=== PATIENT | male | born 1995 | race American Indian/Alaskan Native ===

== ENCOUNTER 2019-02-28 18:05 | Emergency (ER) | payer OTHER ==
--- NOTE | 2019-02-28 19:02 | Event Note ---
ED Screening Note Date of service: 02/28/19 Time: 18:57 ED Screening Note: 23 y/o presents s/p syncopal episode today with lac to chin felt lightheaded feeling prior, Was on the phone and got some bas news prior to syncpal episode This initial assessment/diagnostic orders/clinical plan/treatment(s) is/are subject to change based on patients health status, clinical progression and re- assessment by fellow clinical providers in the ED. Further treatment and workup at subsequent clinical providers discretion. Patient/guardian urged not to elope from the ED as their condition may be serious if not clinically assessed and managed. Initial orders include: labs lac repair acc eval
[2019-02-28 19:03] VITALS: BP 112/80
[2019-02-28 20:06] LABS: Basophils % (Auto) 0.4 % (0.0-1.8); Eosinophils % (Auto) 0.2 % (0.0-4.3); Hematocrit 48.5 % (35.5-45.6); Hemoglobin 16.2 gm/dl (11.8-15.2); Lymphocytes # (Auto) 1.4 K/mm3 (1.2-5.4); Lymphocytes % (Auto) 16.9 % (13.4-35.0); Mean Corpuscular HGB Conc 34 % (32-34); Mean Corpuscular Volume 92 fl (84-94); Monocytes # (Auto) 0.6 K/mm3 (0.0-0.8); Monocytes % (Auto) 6.9 % (0.0-7.3); Platelet Count 164 K/mm3 (140-440); Red Blood Count 5.27 M/mm3 (3.65-5.03); Red Cell Distribution Width 13.5 % (13.2-15.2)
[2019-02-28 20:40] LABS: Alanine Aminotransferase 14 units/L (7-56); Albumin 4.8 g/dL (3.9-5); BUN/Creatinine Ratio 11; Blood Urea Nitrogen 10 mg/dL (9-20); Calcium 9.6 mg/dL (8.4-10.2); Hemolysis Index 10
--- NOTE | 2019-02-28 21:33 | Emergency Department Report ---
ED Syncope HPI - General Chief Complaint: Syncope Stated Complaint: BLACKOUT/FALL INJURY/LAC TO CHIN Time Seen by Provider: 02/28/19 21:21 - History of Present Illness Initial Comments: Patient is a 23-year-old male presents emergency room with complaints of a syncopal episode that occurred at 5:15 PM today. He states that he was on the phone and had received news that he had just been diagnosed with herpes and became very overwhelmed and felt lightheaded and then fell onto the concrete. He states that it was only for a couple seconds. He states that he has an abrasion to his left upper lip, inferior chin, right wrist, right knee. He denies any pain in the right knee or right wrist. He is able to ambulate without difficulty. He denies any symptoms at all currently and states that he feels completely fine now. He denies any headache, vision changes, vomiting, numbness, weakness, chest pain, palpitations, any other injury. He denies any past medical history allergies medications. He states his tetanus immunization is UTD. - Related Data Allergies/Adverse Reactions: Allergies No Known Allergies Allergy (Verified 02/28/19 18:59) ED Review of Systems ROS: Stated complaint: BLACKOUT/FALL INJURY/LAC TO CHIN Other details as noted in HPI Comment: All other systems reviewed and negative ED Past Medical Hx - Past Medical History Previous Medical History?: No - Surgical History Past Surgical History?: No - Social History Smoking Status: Never Smoker ED Physical Exam - General Limitations: No Limitations General appearance: alert, in no apparent distress - Head Head exam: Present: normocephalic, other (0.5 cm abrasion to the left upper lip, 0.5 cm abrasion to the inferior chin, no facial TTP, FROM of the TMJ, no arroyo signs, no racoon eyes) - Eye Eye exam: Present: normal appearance, PERRL, EOMI, other (no signs of entrapment ). Absent: periorbital swelling, periorbital tenderness - ENT ENT exam: Present: normal orophraynx, mucous membranes moist, other (two front teeth are cracked, do not feel loose ) - Respiratory Respiratory exam: Present: normal lung sounds bilaterally. Absent: respiratory distress, wheezes, rales, rhonchi, stridor, chest wall tenderness, accessory muscle use, decreased breath sounds, prolonged expiratory - Cardiovascular Cardiovascular Exam: Present: regular rate, normal rhythm, normal heart sounds. Absent: systolic murmur, diastolic murmur, rubs, gallop - Extremities Exam Extremities exam: Present: other (FROM of the right wrist with no difficulty or pain, no snuffbox tenderness, no deformity, 1 cm abrasion to the posterior right wrist, 1 cm abrasion to the right knee, no TTP of the right knee, no edema, FROM of the right knee, neurovascularly intact throughout) - Neurological Exam Neurological exam: Present: alert, oriented X3, CN II-XII intact, normal gait, other (normal finger to nose, normal heel to duvall, 5/5 strength in the BUE/BLE, sensation intact throughout, normal tandem walking, no focal neuro deficits). Absent: motor sensory deficit - Psychiatric Psychiatric exam: Present: normal affect, normal mood - Skin Skin exam: Present: warm, dry, intact ED Course Vital Signs 02/28/19 19:00 Temperature 98.8 F Pulse Rate 75 Respiratory 20 Rate Blood Pressure 112/80 [Right] O2 Sat by Pulse 100 Oximetry ED Medical Decision Making - Lab Data Result diagrams: 02/28/19 19:53 02/28/19 19:53 Lab Results 02/28/19 02/28/19 Range/Units 19:53 19:53 WBC 8.3 (4.5-11.0) K/mm3 RBC 5.27 H (3.65-5.03) M/mm3 Hgb 16.2 H (11.8-15.2) gm/dl Hct 48.5 H (35.5-45.6) % MCV 92 (84-94) fl MCH 31 (28-32) pg MCHC 34 (32-34) % RDW 13.5 (13.2-15.2) % Plt Count 164 (140-440) K/mm3 Lymph % (Auto) 16.9 (13.4-35.0) % [place] % (Auto) 6.9 (0.0-7.3) % Eos % (Auto) 0.2 (0.0-4.3) % Baso % (Auto) 0.4 (0.0-1.8) % Lymph # 1.4 (1.2-5.4) K/mm3 [place] # 0.6 (0.0-0.8) K/mm3 Eos # 0.0 (0.0-0.4) K/mm3 Baso # 0.0 (0.0-0.1) K/mm3 Seg Neutrophils % 75.6 H (40.0-70.0) % Seg Neutrophils # 6.3 (1.8-7.7) K/mm3 Sodium 140 (137-145) mmol/L Potassium 3.9 (3.6-5.0) mmol/L Chloride 103.1 (98-107) mmol/L Carbon Dioxide 23 (22-30) mmol/L Anion Gap 18 mmol/L BUN 10 (9-20) mg/dL Creatinine 0.9 (0.8-1.5) mg/dL Estimated GFR > 60 ml/min BUN/Creatinine Ratio 11 % Glucose 89 (75-100) mg/dL Calcium 9.6 (8.4-10.2) mg/dL Total Bilirubin 0.40 (0.1-1.2) mg/dL AST 22 (5-40) units/L ALT 14 (7-56) units/L Alkaline Phosphatase 51 (35-129) units/L Total Protein 7.7 (6.3-8.2) g/dL Albumin 4.8 (3.9-5) g/dL Albumin/Globulin Ratio 1.7 % - EKG Data EKG shows normal: sinus rhythm, axis, intervals, QRS complexes Rate: normal - EKG Data 02/28/19 21:36 normal early repolarization no STEMI - Medical Decision Making Patient is a 23-year-old male presents emergency room with complaints of a syncopal episode that occurred at 5:15 PM today. He states that he was on the phone and had received news that he had just been diagnosed with herpes and became very overwhelmed and felt lightheaded and then fell onto the concrete. He states that it was only for a couple seconds. He states that he has an abr asion to his left upper lip, inferior chin, right wrist, right knee. He denies any pain in the right knee or right wrist. He is able to ambulate without difficulty. He denies any symptoms at all currently and states that he feels completely fine now. He denies any headache, vision changes, vomiting, numbness, weakness, chest pain, palpitations, any other injury. He denies any past medical history allergies medications. He states his tetanus immunization is UTD. vitals are normal. on exam: 0.5 cm abrasion to the left upper lip, 0.5 cm abrasion to the inferior chin, no facial TTP, FROM of the TMJ, no arroyo signs, no racoon eyes, two front teeth are cracked, do not feel loose , FROM of the right wrist with no difficulty or pain, no snuffbox tenderness, no deformity, 1 cm abrasion to the posterior right wrist, 1 cm abrasion to the right knee, no TTP of the right knee, no edema, FROM of the right knee, neurovascularly intact throughout, normal finger to nose, normal heel to duvall, 5/5 strength in the BUE/BLE, sensation intact throughout, normal tandem walking, no focal neuro deficits. Labs were ordered prior to my examination and are normal. EKG with normal early repolarization otherwise normal. [place] CT head rule is 0, CT is not recommended. Patient's abrasions irrigated and cleaned with Betadine. advised pt May take Tylenol or ibuprofen for any discomfort. may use a triple antibiotic cream over your abrasions. Keep all areas clean, dry. May wash with soap and water immediately dry. No hot tub,pool, or soaking in water. Follow up with a primary care doctor in the next 2-3 days. Return to the emergency room for any new or worsening symptoms or any signs of infection. - Differential Diagnosis vasovagal, psychogenic, hypotension, arrhythmia, hypoglycemia Critical care attestation.: If time is entered above; I have spent that time in minutes in the direct care of this critically ill patient, excluding procedure time. 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 may use a triple antibiotic cream over your abrasions. Keep all areas clean, dry. May wash with soap and water immediately dry. No hot tub,pool, or soaking in water. Follow up with a primary care doctor in the next 2-3 days. Return to the emergency room for any new or worsening symptoms or any signs of infection. Referrals: DONNA AYALA MD [Staff Physician] - 2-3 Days Forms: Accompanied Note, Work/School Release Form(ED) Time of Disposition: 21:34 Print Language: UGAND[place]
== END 2019-02-28 22:00 | disposition home or self-care (01) ==
LOC: EDSEX → ED 18:05
DX: S00.511A Abrasion of lip, initial encounter (principal); S00.81XA Abrasion of other part of head, initial encounter; S60.811A Abrasion of right wrist, initial encounter; S80.211A Abrasion, right knee, initial encounter; R55 Syncope and collapse; K03.81 Cracked tooth; W18.39XA Other fall on same level, initial encounter; Y93.89 Activity, other specified; Y92.89 Other specified places as the place of occurrence of the external cause; Y99.8 Other external cause status
CPT/HCPCS: 36415; 80053; 85025; 93005; 93010